=== PATIENT | male | born 1975 ===

== ENCOUNTER 2018-04-05 20:37 | Emergency (ER) | payer OTHER ==
[2018-04-05] MEDS ORDERED: Albuterol-Ipratrop 3 mg / 0.5 (3 ml) UD ONE (20:58)
[2018-04-05] MEDS ORDERED: Albuterol-Ipratrop 3 mg / 0.5 (3 ml) UD INH STA (20:59)
[2018-04-05 21:00] VITALS: TEMP 98
--- NOTE | 2018-04-05 22:30 | C.PDOC ---
History Of Present Illness 42 y/o male presents to the ED complaining of a dry cough for 2 days, improving but now with residual left-sided chest pain. Patient notes pain is worse with coughing, deep inspiration, and movement. 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 No recent long distance travel or prolonged immobilization. Patient denies PMHx of coagulopathy. Also denies any dizziness, diaphoresis, nausea, vomiting, leg swelling/pain, or palpitations. Time Seen by Provider: 04/05/18 21:10 Chief Complaint (Nursing): Shortness Of Breath History Per: Patient History/Exam Limitations: no limitations Onset/Duration Of Symptoms: Days Current Symptoms Are (Timing): Still Present Exacerbating Factor(s): Exertion, Coughing Past Medical History Reviewed: Historical Data, Nursing Documentation, Vital Signs Vital Signs: Last Vital Signs Temp 98 F 04/05/18 20:57 Pulse 75 04/05/18 20:57 Resp 18 04/05/18 21:21 BP 164/90 H 04/05/18 20:57 Pulse Ox 98 04/05/18 20:57 - Medical History PMH: Asthma Family History: States: No Known Family Hx - Social History Hx Alcohol Use: Yes Hx Substance Use: No - Immunization History Hx Tetanus Toxoid Vaccination: No Hx Influenza Vaccination: No Hx Pneumococcal Vaccination: No Review Of Systems Constitutional: Negative for: Fever, Chills Eyes: Negative for: Vision Change Cardiovascular: Positive for: Chest Pain (left-sided). Negative for: Palpitations, Light Headedness Respiratory: Positive for: Cough, Shortness of Breath (mild). Negative for: Sputum Gastrointestinal: Negative for: Nausea, Vomiting Musculoskeletal: Negative for: Leg Pain Neurological: Negative for: Weakness, Numbness, Dizziness Physical Exam - Physical Exam Appears: Non-toxic, No Acute Distress Skin: Normal Color, Warm, Dry Head: Atraumatic, Normacephalic Eye(s): bilateral: Normal Inspection Oral Mucosa: Moist Neck: Normal ROM Chest: Tenderness (to left intracostal area at the breast line) Cardiovascular: No Murmur, Other (S1,S2 are wnl) Respiratory: Normal Breath Sounds, No Rales, No Rhonchi, No Wheezing, Other (No intracostal retractions) Gastrointestinal/Abdominal: Soft, No Tenderness, No Distention Extremity: Bilateral: Atraumatic, Normal Color And Temperature Neurological/Psych: Oriented x3, Normal Speech ED Course And Treatment ECG: Interpreted By Me, Viewed By Me ECG Rhythm: Sinus Rhythm ECG Interpretation: Normal Interpretation Of ECG: No acute ST/T changes O2 Sat by Pulse Oximetry: 98 (RA) Pulse Ox Interpretation: Normal - Radiology CXR: Interpreted by Me, Viewed By Me CXR Interpretation: Yes: No Acute Disease Progress Note: Administered albuterol nebulizer, PO flexeril, and toradol IM. CXR ordered, shows no acute disease. EKG shows normal sinus rhythm. On reevaluation, patient observed sleeping comfortably on stretcher. He reports improvement in symptoms. Discussed normal results w/ patient, and advised to follow up with PMD for further evaluation. Reassessment Condition: Improved Disposition - Disposition Referrals: Non [facility] Provider, [Primary Care Provider] - Disposition: HOME/ ROUTINE Disposition Time: 22:28 Condition: STABLE Additional Instructions: Please follow up with PMD in 1-2 days Take medication as directed Return to ER if progressive difficulty breathing, severe chest pain, dizziness, sweating with the pain, palpitations, fainting or fainting splells or worse Prescriptions: Cyclobenzaprine [Cyclobenzaprine HCl] 10 mg PO HS #10 tab Ibuprofen [Motrin] 600 mg PO Q6H #20 tab Instructions: Costochondritis (DC) Forms: [facility] (New Zealander), Work Excuse - Clinical Impression Clinical Impression: Chest wall pain - 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 - Scribe Statement The provider has reviewed the documentation as recorded by the Scribe (Serene Chan) All medical record entries made by the Scribe were at my direction and personally dictated by me. I have reviewed the chart and agree that the record accurately reflects my personal performance of the history, physical exam, medical decision making, and the department course for this patient. I have also personally directed, reviewed, and agree with the discharge instructions and disposition.
[2018-04-05 22:37] VITALS: BP 122/82; PULSE 79; RESP 16
[2018-04-06 00:28] VITALS: O2SAT 98
--- NOTE | 2018-04-06 09:22 | RAD ---
Chest x-ray two views HISTORY: Chest pain. COMPARISON: None available. Findings: No focal infiltrate or effusion. Mild linear atelectasis at the left lung base. Minimal apical pleural thickening. Heart size within normal limits. Degenerative changes in the spine. Impression: No focal infiltrate or effusion. Mild linear atelectasis at the left lung base. Minimal apical pleural thickening.
--- NOTE | 2018-04-07 12:29 | CARD ---
APPROVED REPORT Date of service: 04/05/2018 EKG Measurement Heart [id number] <Conclusion> Normal sinus rhythm Moderate voltage criteria for LVH, may be normal variant T wave abnormality, consider inferior ischemia Abnormal ECG
== END 2018-04-05 22:38 | disposition home or self-care (01) ==
LOC: SUPCPDRO 20:37 → C.ER 20:37
DX: R07.89 Other chest pain (principal)
CPT/HCPCS: 71046; 93005; 96372; 99284; J1885

== ENCOUNTER 2018-04-14 01:31 | Inpatient (IN) | payer OTHER ==
[2018-04-14] MEDS ORDERED: Sodium Chloride 0.9% 1,000 ML IV ONE (02:47)
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
[2018-04-14 03:19] LABS: BASO # 0.1 K/uL (0.0-0.2); BASO % 0.5 % (0.0-2.0); EOS # 0.1 K/uL (0.0-0.7); EOS % 0.7 % (0.0-4.0); HEMOGLOBIN 15.7 g/dL (12.0-18.0); LYMPH % 7.4 % (20.0-40.0); MEAN CELL VOLUME 90.7 fL (80.0-94.0); MEAN CORPUSCULAR HEMOGLOBIN 30.3 pg (27.0-31.0); MEAN CORPUSCULAR HGB CONC 33.4 g/dL (33.0-37.0); MEAN PLATELET VOLUME 8.9 fL (7.2-11.7); MONO # 0.6 K/uL (0.0-0.8); MONO % 4.7 % (0.0-10.0); NEUT # 11.8 K/uL (1.8-7.0); NEUT % 86.7 % (50.0-75.0); NRBC % 0.1 % (0.0-2.0); PLATELET COUNT 259 K/uL (130-400); RBC 5.18 Mil/uL (4.40-5.90); RED CELL DISTRIBUTION WIDTH 13.1 % (11.5-14.5); WHITE BLOOD COUNT 13.6 K/uL (4.8-10.8)
[2018-04-14 03:32] LABS: ALB/GLOB RATIO 1.3 (1.0-2.1); ALBUMIN 4.5 g/dL (3.5-5.0); BLOOD UREA NITROGEN 16 mg/dL (9-20); CALCIUM 10.1 mg/dl (8.6-10.4); GFR NON-AFRICAN AMERICAN > 60
[2018-04-14 03:33] LABS: ALT/SGPT 35 U/L (21-72); AST/SGOT 27 U/L (17-59); LIPASE 53 U/L (23-300)
[2018-04-14 03:42] LABS: PROTHROMBIN TIME 10.6 SECONDS (9.7-12.2)
[2018-04-14 03:48] LABS: BANDS 3 % (0-2); LYMPHOCYTE 8 % (20-40); MONOCYTE 5 % (0-10); NEUTROPHIL 84 % (50-75); PLATELET ESTIMATE NORMAL (NORMAL); TOTAL CELLS COUNTED 100
[2018-04-14] MEDS ORDERED: Piperacillin/Tazobact 3.375 gm 100 ML IVPB STA (03:55)
[2018-04-14] MEDS ORDERED: Iodixanol 320 MG/ML 100 ML BOTTLE IV ONE (04:22)
[2018-04-14] MEDS ORDERED: Piperacillin/Tazobact 3.375 gm 100 ML IVPB ONE (05:18)
[2018-04-14 05:30] LABS: SQUAMOUS EPITHIAL 1 /hpf (0-5); URINE AMORPHOUS SEDIMENT RARE /ul (<OCC); URINE BILIRUBIN NEGATIVE (NEGATIVE); URINE BLOOD NEGATIVE (NEGATIVE); URINE CLARITY Clear (Clear); URINE COLOR Yellow (YELLOW); URINE GLUCOSE (UA) NORMAL (Normal); URINE LEUKOCYTE ESTERASE TRACE Leu/uL (Negative); URINE PROTEIN 2+ mg/dL (NEGATIVE); URINE UROBILINOGEN NORMAL mg/dL (0.2-1.0)
[2018-04-14 08:59] VITALS: RESP 20
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
[2018-04-14] MEDS ORDERED: Sodium Chloride 0.9% 1,000 ML IV SCH (14:30)
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
[2018-04-15 00:51] VITALS: O2SAT 97
[2018-04-15 05:34] LABS: BARBITURATES, UR NEGATIVE (NEGATIVE); BENZODIAZEPINES, UR NEGATIVE (NEGATIVE); OPIATES, UR NEGATIVE (NEGATIVE); PHENCYCLIDINE, UR NEGATIVE (NEGATIVE)
[2018-04-15 07:45] VITALS: BP 127/83; PULSE 72; TEMP 98.6
[2018-04-15 08:16] LABS: BASO % 0.4 % (0.0-2.0); EOS # 0.5 K/uL (0.0-0.7); EOS % 7.3 % (0.0-4.0); HEMOGLOBIN 14.2 g/dL (12.0-18.0); LYMPH # 1.9 K/uL (1.0-4.3); LYMPH % 30.7 % (20.0-40.0); MEAN CELL VOLUME 91.1 fL (80.0-94.0); MEAN CORPUSCULAR HEMOGLOBIN 30.8 pg (27.0-31.0); MEAN CORPUSCULAR HGB CONC 33.8 g/dL (33.0-37.0); MEAN PLATELET VOLUME 8.8 fL (7.2-11.7); MONO # 0.6 K/uL (0.0-0.8); MONO % 9.1 % (0.0-10.0); NEUT # 3.3 K/uL (1.8-7.0); NEUT % 52.5 % (50.0-75.0); RBC 4.61 Mil/uL (4.40-5.90); RED CELL DISTRIBUTION WIDTH 13.3 % (11.5-14.5)
[2018-04-15 08:17] LABS: WHITE BLOOD COUNT 6.3 K/uL (4.8-10.8)
[2018-04-15 08:49] LABS: ALB/GLOB RATIO 1.3 (1.0-2.1); ALBUMIN 3.6 g/dL (3.5-5.0); ALT/SGPT 29 U/L (21-72); AST/SGOT 22 U/L (17-59); BLOOD UREA NITROGEN 11 mg/dL (9-20); CALCIUM 8.9 mg/dl (8.6-10.4); GFR NON-AFRICAN AMERICAN > 60
--- NOTE | 2018-04-15 13:16 | CP.PCM.PN ---
Subjective - Date & Time of Evaluation Date of Evaluation: 04/15/18 Time of Evaluation: 13:16 - Subjective Subjective: PATIENT SEEN AND EXAMINED AT THE BEDSIDE Objective - Vital Signs/Intake and Output Vital Signs (last 24 hours): Temp Pulse Resp BP Pulse Ox 98.6 F 72 20 127/83 97 04/15/18 07:00 04/15/18 07:00 04/15/18 07:00 04/15/18 07:00 04/15/18 07:00 Intake and Output: 04/15/18 04/15/18 06:59 18:59 Intake Total 240 Balance 240 - Medications Medications: Current Medications Heparin Sodium (Porcine) (Heparin) 5,000 units SC Q12H [facility] Last Admin: 04/15/18 11:09 Dose: 5,000 units Sodium Chloride (Sodium Chloride 0.9%) 1,000 mls @ 100 mls/hr IV .Q10H [facility] Last Admin: 04/15/18 06:07 Dose: 100 mls/hr Influenza Virus Vaccine (Fluzone Quad [id number]) 60 mcg IM .ONCE ONE Stop: 04/17/18 10:01 Pneumococcal Polyvalent Vaccine (Pneumovax 23 Vaccine) 0.5 ml IM .ONCE ONE Stop: 04/17/18 10:01 - Labs Labs: 04/15/18 08:00 04/15/18 08:00 PT 10.6 SECONDS (9.7-12.2) 04/14/18 03:14 INR 1.0 04/14/18 03:14 APTT 31 SECONDS (21-34) 04/14/18 03:14 Assessment and Plan - Assessment and Plan (Free Text) Assessment: FOLLOW UP WITH DR SMITH IN 1-2 WEEKS AT HIS OFFICE ----CALL FOR APPOINTMENT CONTINUE HOME MEDICATION IF ANY ACTIVITY TOLERATED CALL DR SMITH OR GO TO THE EMERGENCY ROOM IF SYMPTOMS RETURN OR WORSENING
--- NOTE | 2018-04-16 10:23 | HP ---
HISTORY OF PRESENT ILLNESS: The patient's chief complaint of weakness, fatigue, tiredness and abdominal pain. The patient was found to have small bowel obstruction. The patient bed rest, n.p.o., advised admission. PHYSICAL EXAMINATION: GENERAL: The patient is awake, alert, oriented. VITAL SIGNS: Temperature 98, pulse 90. HEENT: Within normal limits. NECK: Supple. CHEST: Symmetrical. HEART: Regular. ABDOMEN: Soft. EXTREMITIES: No edema. ASSESSMENT AND PLAN: The patient suffers from small bowel obstruction. The patient is to get bed rest. Supportive care. Denilson Mesa MD
[2018-04-17] MEDS ORDERED: Pneumococcal 23-Valent Vaccine IM ONE (10:00)
[2018-04-17] MEDS ORDERED: Influenza Vaccine 60 MCG/0.5 ML SYR (3 yr & up) IM ONE (10:00)
== END 2018-04-15 14:00 | disposition home or self-care (01) | DRG 389 ==
LOC: C.ER 01:31 → C.9E 05:29 → C.5S 06:54
PROVIDERS: ADMIT Internal Medicine Pulmonary Disease; ATTEND Internal Medicine Pulmonary Disease
DX: K56.600 Partial intestinal obstruction, unspecified as to cause (principal); R18.8 Other ascites; J45.909 Unspecified asthma, uncomplicated; F17.210 Nicotine dependence, cigarettes, uncomplicated; N28.1 Cyst of kidney, acquired; F14.10 Cocaine abuse, uncomplicated; F12.10 Cannabis abuse, uncomplicated